=== PATIENT | female | born 1950 | race Caucasian/White ===

== ENCOUNTER → 2018-06-25 09:10 | Outpatient (CLI) | payer MEDICARE, OTHER, SELFPAY ==
--- NOTE | 2018-06-25 | DI.MG.S_ITS ---
BILATERAL DIGITAL SCREENING MAMMOGRAM 3D/2D WITH CAD: 06/25/2018 CLINICAL: Routine screening. Comparison is made to exams dated: 05/10/2017 mammogram, 04/15/2015 mammogram, and 11/23/2012 mammogram - [facility]. The tissue of both breasts is heterogeneously dense. This may lower the sensitivity of mammography. Current study was also evaluated with a Computer Aided Detection (CAD) system. There are a diffuse punctate calcifications in the lower inner left breast at middle depth. These are appear increased in number of calcifications from prior exam, although a component of this may be due to technique. No other significant masses, calcifications, or other findings are seen in either breast. IMPRESSION: INCOMPLETE: NEEDS ADDITIONAL IMAGING EVALUATION The diffuse punctate calcifications in the left breast are indeterminate. They appear increased in number from prior exam, although a component of this may be due to technique. Additional views including magnification views with possible ultrasound are recommended. This exam was interpreted at Station ID: [id number]. NOTE: For mammograms, a report in lay terms will be sent to the patient. Approximately 15% of breast malignancies will not be visualized mammographically. In the management of a palpable breast mass, a negative mammogram must not discourage biopsy of a clinically suspicious lesion. Electronically Signed By: Orville Phelps M.D. ecl/:06/27/2018 14:57:54 letter sent: Additional Imaging Needed ACR BI-RADS Category 0: Incomplete 3340F
== END ==
PROVIDERS: PCP Nurse Practitioner Family; Visit Provider Nurse Practitioner Family
DX: Z12.31 Encounter for screening mammogram for malignant neoplasm of breast (principal)
CPT/HCPCS: 77063; 77067

== ENCOUNTER → 2018-07-08 09:17 | Outpatient (CLI) | payer MEDICARE, OTHER, SELFPAY ==
--- NOTE | 2018-07-08 | DI.MG.S_ITS ---
UNILATERAL LEFT DIGITAL DIAGNOSTIC MAMMOGRAM 3D/2D WITH ADDITIONAL VIEWS: 07/08/2018 CLINICAL: Additional evaluation requested from prior study. Comparison is made to exams dated: 06/25/2018 mammogram, 05/10/2017 mammogram, and 04/15/2015 mammogram - [facility]. The tissue of left breast is heterogeneously dense. This may lower the sensitivity of mammography. There are stable benign diffuse punctate calcifications in the left breast at 7 o'clock middle depth. These have an unchanged appearance on multiple prior 2D exams. No other significant masses or calcifications are seen in the breast. IMPRESSION: The apparent change in the number of calcifications on the prior screening mammogram is likely secondary to difference in technique. There is no mammographic evidence of malignancy. A 1 year screening mammogram is recommended. This exam was interpreted at Station ID: [id number]. NOTE: For mammograms, a report in lay terms will be sent to the patient. Approximately 15% of breast malignancies will not be visualized mammographically. In the management of a palpable breast mass, a negative mammogram must not discourage biopsy of a clinically suspicious lesion. Electronically Signed By: Briseyda baldwin/:07/08/2018 09:54:26 letter sent: Normal Exam ACR BI-RADS Category 2: Benign Finding(s) 3342F
== END ==
PROVIDERS: PCP Nurse Practitioner Family; Visit Provider Nurse Practitioner Family
DX: R92.1 Mammographic calcification found on diagnostic imaging of breast (principal)
CPT/HCPCS: 77065; G0279